=== PATIENT | female | born 1950 | race Caucasian/White ===

== ENCOUNTER 2022-07-06 17:34 | Inpatient (IN) | payer MEDICARE, MEDICAID ==
[~2022-07-06] VITALS: Ht 147.3 cm; Wt 68.8 kg
[~2022-07-06 17:34] MED LIST: ATOR10TA87 PO; CLOP75TA34 PO; EST1T PO; FENO48TA15 PO; HYDR1TAB PO; IMD30T PO; LORA0.5T PO; MONT10TA21 PO; MOT200T PO; NITR0.4T51 SL; QUET25TA PO; SIMV5TAB58 PO; TRAM50TA2 PO; TRAZ-91 PO; VENL25TA48 PO
[2022-07-06 19:35] VITALS: BP 144/96
[2022-07-06] MEDS ORDERED: acetaminophen 325mg tablet PO PRN ×2 (20:05)
[2022-07-06] MEDS ORDERED: mag hydrox/Alum hydrox/simeth 30ml oral suspension PO PRN (20:05)
[2022-07-06] MEDS ORDERED: loperamide 2mg capsule PO PRN (20:05)
[2022-07-06] MEDS ORDERED: magnesium hydroxide 30ml (MOM) UD suspension PO PRN (20:05)
[2022-07-06] MEDS ORDERED: traZODone 50mg tablet PO PRN (21:50)
[2022-07-06] MEDS ORDERED: QUEtiapine 25mg tablet PO ONE (22:15)
[2022-07-06] MEDS ORDERED: nitroGLYCERIN 0.4mg SUBLingual tab SL PRN (22:20)
[2022-07-06] MEDS: LORazepam 0.5 MG tablet PO PRN (22:33)
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
[2022-07-07 08:00] VITALS: BP 98/56
[2022-07-07 08:24] LABS: HEMOGLOBIN A1C 5.7 % (4.5-6.2)
[2022-07-07 08:25] LABS: CHOL/HDL RATIO 4.8 (0.00-4.99); CHOLESTEROL 230 MG/DL (0-200); HDL CHOLESTEROL 48 MG/DL (35-60); LDL CHOLESTEROL 162 MG/DL (50-100); TRIGLYCERIDES 115 MG/DL (20-135)
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
[2022-07-07] MEDS ORDERED: ATOR20TA PO (10:04)
[2022-07-07] MEDS ORDERED: CARV3.122 PO (10:04)
[2022-07-07] MEDS ORDERED: ASPI81TA52 PO (10:04)
[2022-07-07] MEDS ORDERED: VENL-191 PO (10:04)
[2022-07-07] MEDS ORDERED: FENO160T PO (10:45)
[2022-07-07] MEDS ORDERED: LISI2.5T14 PO (10:45)
[2022-07-07] MEDS ORDERED: ISOS30TA84 PO (10:45)
[2022-07-07] MEDS ORDERED: MONT10TA21 PO (10:45)
[2022-07-07] MEDS ORDERED: QUET-1 PO (10:45)
[2022-07-07] MEDS ORDERED: SPIR25TA5 PO (10:45)
[2022-07-07] MEDS ORDERED: POLY17PO10 PO (10:45)
[2022-07-07] MEDS ORDERED: ALBU18HF2 INH (10:45)
[2022-07-07] MEDS ORDERED: TRAZ-251 PO (10:45)
[2022-07-07] MEDS ORDERED: OMEP40CA21 PO (10:45)
[2022-07-07] MEDS: LORazepam 0.5 MG tablet PO PRN ×2 (16:03→20:58)
[2022-07-07] MEDS: cetirizine 10mg tablet PO SCH (16:25)
[2022-07-07] MEDS: montelukast 10mg tablet PO SCH (17:06)
--- NOTE | 2022-07-07 17:09 | NUR ---
Pt. presents with what appears to be a reddened rash on her bilateral arms and stomach. Dr. Mclean evaluated areas and suggested that pt. may have come in contact with something in the environment that caused this, he gave orders for PO Singulair to be administered along with Zyrtec. Pt. refused the Zyrtec, will continue to monitor closely.
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
[2022-07-07 19:34] VITALS: BP 148/113
[2022-07-07] MEDS: docusate sod 100mg capsule PO SCH (20:40)
[2022-07-07] MEDS: traZODone 50mg tablet PO SCH (20:40)
[2022-07-07] MEDS: quetiapine 100mg tablet PO SCH (20:40)
[2022-07-07] MEDS: diphenhydrAMINE 2%/zinc acetate cream TP SCH (20:41)
[2022-07-07] MEDS ORDERED: QUEtiapine 25mg tablet PO SCH (21:00)
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
[2022-07-08] MEDS: atorvastatin 20mg tablet PO SCH (07:25)
[2022-07-08] MEDS: venlafaxine 37.5mg tablet PO SCH (07:25)
[2022-07-08] MEDS: cetirizine 10mg tablet PO SCH (07:25)
[2022-07-08] MEDS: montelukast 10mg tablet PO SCH (07:25)
[2022-07-08] MEDS: docusate sod 100mg capsule PO SCH ×2 (07:28→20:49)
[2022-07-08] MEDS: diphenhydrAMINE 2%/zinc acetate cream TP SCH ×3 (07:33→20:54)
[2022-07-08 08:00] VITALS: BP 145/62
[2022-07-08] MEDS ORDERED: pantoprazole 40mg Tablet.DR PO ONE (14:38)
[2022-07-08] MEDS: ondansetron 4mg rapidly disintigrating tab PO PRN (15:00)
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
[2022-07-08 19:00] VITALS: BP 140/48
[2022-07-08] MEDS: quetiapine 100mg tablet PO SCH (20:49)
[2022-07-08] MEDS: traZODone 50mg tablet PO SCH (20:49)
[2022-07-08] MEDS: LORazepam 0.5 MG tablet PO PRN (20:53)
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
[2022-07-09] MEDS: atorvastatin 20mg tablet PO SCH (07:23)
[2022-07-09] MEDS: montelukast 10mg tablet PO SCH (07:23)
[2022-07-09] MEDS: venlafaxine 37.5mg tablet PO SCH (07:23)
[2022-07-09] MEDS: diphenhydrAMINE 2%/zinc acetate cream TP SCH ×3 (07:24→20:17)
[2022-07-09] MEDS: cetirizine 10mg tablet PO SCH (07:24)
[2022-07-09] MEDS: pantoprazole 40mg Tablet.DR PO SCH (07:24)
[2022-07-09] MEDS: docusate sod 100mg capsule PO SCH ×2 (07:24→20:17)
[2022-07-09 08:00] VITALS: BP 118/43
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
[2022-07-09 20:00] VITALS: BP 136/63
[2022-07-09] MEDS: quetiapine 100mg tablet PO SCH (20:17)
[2022-07-09] MEDS: traZODone 50mg tablet PO SCH (20:17)
[2022-07-09] MEDS: LORazepam 0.5 MG tablet PO PRN (20:23)
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
[2022-07-10] MEDS: atorvastatin 20mg tablet PO SCH (07:41)
[2022-07-10] MEDS: cetirizine 10mg tablet PO SCH (07:41)
[2022-07-10] MEDS: montelukast 10mg tablet PO SCH (07:41)
[2022-07-10] MEDS: venlafaxine 37.5mg tablet PO SCH (07:41)
[2022-07-10] MEDS: pantoprazole 40mg Tablet.DR PO SCH (07:42)
[2022-07-10] MEDS: docusate sod 100mg capsule PO SCH ×2 (07:42→20:23)
[2022-07-10] MEDS: diphenhydrAMINE 2%/zinc acetate cream TP SCH ×3 (07:42→20:24)
--- NOTE | 2022-07-10 07:42 | NUR ---
Initial: Pt admitted w/ psychosis per EMR. Currently on Regular diet w/ mostly 100% intake of meals meeting est needs at this time. LBM 07/09 receiving routine colace. No nutrition intervention implemented at this time, will continue to monitor. Recs; 1. Continue Regular diet as tolerated 2. Bowel care per rx 3. Weekly wts Addendum: 07/10/22 at [address] Amended: Links added.
[2022-07-10 08:00] VITALS: BP 122/66
[2022-07-10] MEDS: ondansetron 4mg rapidly disintigrating tab PO PRN (12:47)
--- NOTE | 2022-07-10 17:22 | NUR ---
NURSING PROGRESS NOTE PROBLEM: Client presented to the ED requiring a medication adjustment. She has a history of Bipolar DO that was controlled (for years) by [place]. [place] was discontinued d/t renal toxicity. Client was placed on Latuda. She overdosed on Latuda approximately one month ago and was admitted to [facility]. Client denies a suicide attempt. Client did not resume psychotropic medications after leaving [facility]. It was noted that her ability to function declined significantly while off medications. She was admitted on a 5150 for GD. Client lives alone and reports she owns her home. INTERVENTION'S: Introduced self and attempted to establish rapport, maintained a safe and supportive environment, provided clear and simple instructions, attempted to orient to reality, encouraged participation on the unit, and maintained Q 15min safety checks. RESPONSE: Received patient sleeping in bed at change of shift. Patient awakened for medications and attended all meals in the dining room with peers. During 1:1, patient is slowed cognitively and has possible developmental delays (according to past chart). Patient self-isolates to her room between meals and lays in bed, sometimes sleeping and sometimes with eyes wide open. Patient often waits a prolonged amount of time before answering questions, or repeats question and then answers. Patient is simultaneously having involuntary movements of hands, and some tightening of jaw muscles. Patient does not initiate any conversation and only answers with one to two word answers. Patient is steady on her feet during ambulation. Plan: Patient in need of medication adjustments in a safe and therapeutic environment.
[2022-07-10 20:15] VITALS: BP 114/56
[2022-07-10] MEDS: traZODone 50mg tablet PO SCH (20:23)
[2022-07-10] MEDS: quetiapine 100mg tablet PO SCH (20:24)
[2022-07-10] MEDS: LORazepam 0.5 MG tablet PO PRN (20:28)
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
[2022-07-11 08:00] VITALS: BP 139/112
[2022-07-11] MEDS: docusate sod 100mg capsule PO SCH (08:21)
[2022-07-11] MEDS: cetirizine 10mg tablet PO SCH (08:21)
[2022-07-11] MEDS: atorvastatin 20mg tablet PO SCH (08:21)
[2022-07-11] MEDS: pantoprazole 40mg Tablet.DR PO SCH (08:21)
[2022-07-11] MEDS: montelukast 10mg tablet PO SCH (08:21)
[2022-07-11] MEDS: venlafaxine 37.5mg tablet PO SCH (08:21)
[2022-07-11] MEDS: diphenhydrAMINE 2%/zinc acetate cream TP SCH ×2 (08:31→13:49)
[2022-07-11] MEDS: LORazepam 0.5 MG tablet PO PRN (08:39)
--- NOTE | 2022-07-11 13:38 | NUR ---
5250 released for GD
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
[2022-07-11] MEDS ORDERED: QUET100T34 PO (14:21)
[2022-07-11] MEDS ORDERED: TRAZ-251 PO (14:21)
[2022-07-11] MEDS ORDERED: VENL75TA90 PO (14:21)
--- NOTE | 2022-07-11 15:24 | NUR ---
Medications picked up from pharmacy and placed in belongings.
--- NOTE | 2022-07-11 15:34 | NUR ---
Discharge Note : Pt. signed all paper work and copies placed in folder. Reviewed f/u appt date Dr. Kapoor MondayJuly 22 at 9:45 Am. All personal belongings and medications released from pharmacy returned to pt. at 1530 time of DC. She ambulated of unit with out issue.
--- NOTE | 2022-07-11 15:57 | NUR ---
THERAPEUTIC GROUP Client attended therapeutic group about wisdom, coping skills. Exercise was writing or verbalizing wisdom to a imaginary young person. Intervention was peer interaction, verbalizing feelings, and identifying strengths (resilience). Client participated in group. Client applied intervention by interacting with peers, and sharing moves for deep breathing and chi gong with peers.
== END 2022-07-11 15:30 | disposition home or self-care (01) | DRG 885 ==
LOC: ADULT MH 17:34
PROVIDERS: ADMIT Psychiatry & Neurology Psychiatry; ATTEND Psychiatry & Neurology Psychiatry
DX: F29 Unspecified psychosis not due to a substance or known physiological condition (principal); I42.9 Cardiomyopathy, unspecified; F17.210 Nicotine dependence, cigarettes, uncomplicated; F20.9 Schizophrenia, unspecified; R21 Rash and other nonspecific skin eruption; J44.9 Chronic obstructive pulmonary disease, unspecified; I10 Essential (primary) hypertension; E78.5 Hyperlipidemia, unspecified; L25.9 Unspecified contact dermatitis, unspecified cause; I25.10 Atherosclerotic heart disease of native coronary artery without angina pectoris; I25.2 Old myocardial infarction; Z80.7 Family history of other malignant neoplasms of lymphoid, hematopoietic and related tissues; Z83.3 Family history of diabetes mellitus; Z88.0 Allergy status to penicillin; Z90.710 Acquired absence of both cervix and uterus; Z95.5 Presence of coronary angioplasty implant and graft; Z88.5 Allergy status to narcotic agent; Z88.8 Allergy status to other drugs, medicaments and biological substances; Z79.899 Other long term (current) drug therapy; Z79.82 Long term (current) use of aspirin
CPT/HCPCS: 36415; 80061; 83036; 87081; A4615